=== PATIENT | male | born 1990 | race Caucasian/White ===

== ENCOUNTER 2023-12-12 09:08 | Outpatient (CLI) | payer BC, SELFPAY | END 2023-12-12 09:09 | disposition home or self-care (01) | PROVIDERS: PCP Family Medicine; Visit Provider Family Medicine | DX: Z00.00 Encounter for general adult medical examination without abnormal findings (principal); Z13.6 Encounter for screening for cardiovascular disorders | CPT/HCPCS: 80048; 80061; 85025 ==

== ENCOUNTER 2024-08-10 13:57 | Outpatient (CLI) | payer BC, SELFPAY | END 2024-08-10 13:58 | disposition home or self-care (01) | PROVIDERS: PCP Family Medicine; Visit Provider Family Medicine | DX: K62.5 Hemorrhage of anus and rectum (principal) | CPT/HCPCS: 85025; 85651; 86140 ==

== ENCOUNTER 2025-09-27 11:53 | Outpatient (CLI) | payer BC, SELFPAY ==
--- NOTE | 2025-09-27 13:13 | P.ANES_ITS ---
Anesthesia Charges Start Date/Time Anesthesia Start Date: 09/27/25 Anesthesia Start Time: 13:08 Stop Date/Time Anesthesia Stop Date: 09/27/25 Anesthesia Stop Time: 13:27 Coding CPT Codes CPT Codes: NAT LWR INTST NDNM NOS - [id number] ([id number]) P1 - NORMAL HEALTHY PATIENT, QK - ROTARY DRIER OPERATOR 2-4 CNCRNT ANES PROC, QX - WOOD MECHANIST SVC W/ MED DIRECTION
--- NOTE | 2025-09-27 13:13 | W.ANESCHARGE ---
Anesthesia Charges Start Date/Time Anesthesia Start Date: 09/27/25 Anesthesia Start Time: 13:08 Stop Date/Time Anesthesia Stop Date: 09/27/25 Anesthesia Stop Time: 13:27 Coding CPT Codes CPT Codes: NAT LWR INTST NDAR NOS - [id number] ([id number]) P1 - NORMAL HEALTHY PATIENT, QK - DEHORNER 2-4 CNCRNT ANES PROC, QX - COMPUTER AIDED DESIGN DESIGNER SVC W/ MED DIRECTION
--- NOTE | 2025-09-27 13:32 | P.ANES_ITS ---
Anesthesia Charges Start Date/Time Anesthesia Start Date: 09/27/25 Anesthesia Start Time: 13:08 Stop Date/Time Anesthesia Stop Date: 09/27/25 Anesthesia Stop Time: 13:27 Coding CPT Codes CPT Codes: ANES LWR INTST NDAZ NOS - [id number] ([id number]) P1 - NORMAL HEALTHY PATIENT, QK - CENTER DIRECTOR LEAD TEACHER 2-4 CNCRNT ANES PROC
--- NOTE | 2025-09-27 13:32 | W.ANESCHARGE ---
Anesthesia Charges Start Date/Time Anesthesia Start Date: 09/27/25 Anesthesia Start Time: 13:08 Stop Date/Time Anesthesia Stop Date: 09/27/25 Anesthesia Stop Time: 13:27 Coding CPT Codes CPT Codes: ANES LWR INTST NDAR NOS - [id number] ([id number]) P1 - NORMAL HEALTHY PATIENT, QK - PULLING UNIT FLOORHAND 2-4 CNCRNT ANES PROC
== END 2025-09-27 11:54 | disposition home or self-care (01) ==
PROVIDERS: PCP Internal Medicine; Visit Provider Internal Medicine
DX: K92.1 Melena (principal); D12.5 Benign neoplasm of sigmoid colon
CPT/HCPCS: 00811; 45380; J2704